=== PATIENT | female | born 1960 ===

== ENCOUNTER 2017-11-30 07:12 | Day surgery (SDC) | payer OTHER ==
[2017-11-30] MEDS ORDERED: Lactated Ringer's 500 ML IV ONE (07:35)
[2017-11-30 07:46] VITALS: BMI 22.3
[2017-11-30] MEDS ORDERED: Propofol 10 mg/ml Inj (20 ML) ONE (08:31)
[2017-11-30 09:02] VITALS: TEMP 97; O2SAT 100
[2017-11-30 09:13] VITALS: BP 100/43; PULSE 57; RESP 14
== END 2017-11-30 10:00 | disposition home or self-care (01) ==
LOC: H.ENDO 07:12
PROVIDERS: ATTEND Internal Medicine Gastroenterology
DX: Z12.11 Encounter for screening for malignant neoplasm of colon (principal); K64.8 Other hemorrhoids
CPT/HCPCS: 45378; J2001; J2704; J7120